=== PATIENT | male | born 2000 | race Hispanic/Latino ===

== ENCOUNTER 2023-08-12 23:11 | Emergency (ER) | payer OTHER ==
[~2023-08-12] VITALS: Ht 177.8 cm; Wt 126.1 kg
[2023-08-12 23:13] VITALS: BP_DIAS 74
[2023-08-13 00:59] VITALS: BP_SYST 74; PULSE 87; RESP 18; O2SAT 98
[2023-08-13 00:59] LABS: SARS-CoV-2, RNA, NAAT NEGATIVE SARS CoV-2 (NEGATIVE)
[2023-08-13 01:05] LABS: INFLUENZA TYPE A Negative For Type A (NEGATIVE); INFLUENZA TYPE B Negative For Type B (NEGATIVE)
[2023-08-13] MEDS ORDERED: IBUP-1493 PO (01:38)
[2023-08-13] MEDS ORDERED: CEFU500T67 PO (01:38)
== END 2023-08-13 01:49 | disposition home or self-care (01) ==
LOC: EDH 23:11
DX: B34.9 Viral infection, unspecified (principal); J20.9 Acute bronchitis, unspecified; F17.200 Nicotine dependence, unspecified, uncomplicated; Z20.822 Contact with and (suspected) exposure to COVID-19
CPT/HCPCS: 99283; 87635; 87804 ×2; C9803

== ENCOUNTER 2025-06-23 08:29 | Emergency (ER) | payer OTHER ==
[~2025-06-23] VITALS: Ht 180.3 cm; Wt 127.0 kg
[~2025-06-23 08:29] MED LIST: CEFU500T67 PO; IBUP-1493 PO
[2025-06-23 09:11] LABS: IMMATURE GRANULOCYTE ABSOLUTE 0.04 K/uL (0-1); NUCLEATED RED BLOOD CELLS 0.0 % (0.0-0.19); PLATELET COUNT (AUTO) 194 K/uL (130-400); RED BLOOD CELL COUNT(AUTO) 5.46 MIL/uL (4.50-6.20); RED CELL DISTRIBUTION WIDTH 13.3 % (11.0-15.5); WHITE BLOOD COUNT (AUTO) 11.3 K/uL (4.8-10.8)
[2025-06-23 09:18] LABS: CREATININE 0.8 mg/dL (0.5-1.3); GLOMERULAR FILTR. RATE CALC 126.0 mL/min (>90); GLUCOSE,RANDOM 122.0 mg/dL (70-105); SODIUM SERUM 141.0 mmol/L (136-145); UREA NITROGEN, BLOOD 12.0 mg/dL (7-18)
[2025-06-23 09:19] LABS: RAPID GROUP A STREP negative (NEGATIVE)
--- NOTE | 2025-06-23 09:23 | ERN ---
General Chief Complaint: Cough Stated Complaint: COUGH Time Seen by MD: 08:34 History of Present Illness Initial Comments 25-year-old male presented with a chief complaint of cough with sputum production for 2 weeks. He also complained of vomiting for the last 1 week after the vigorous cough. He denied fever, night sweat, shortness of breath, chest pain, noisy breathing, myalgia, abdominal pain, diarrhea and any other recent illness in the family. He has been actively smoking 1-2 sticks per day for last 6 years. He complained of mild throat discomfort because of occasional vomiting precipitated by vigorous cough. Allergies: Coded Allergies: No Known Drug Allergies (Unverified Allergy, Unknown, 08/12/23) Home Meds Active Scripts Fexofenadine HCl (Fexofenadine HCl) 180 Mg Tablet, 180 MG PO DAILYDINNER for 5 Days, #5 TAB Prov:YAIMA ROSS MD 06/23/25 Pantoprazole Sodium (Pantoprazole Sodium) 40 Mg Tablet.dr, 40 MG PO DAILY for 10 Days, #10 TAB Prov:YAIMA ROSS MD 06/23/25 Azithromycin (Azithromycin) 250 Mg Tablet, 1 TAB PO AD for 5 Days, #6 TAB 0 Refills 2 the first day followed by 1 for days 2-5 Prov:YAIMA ROSS MD 06/23/25 Cefuroxime Axetil (Cefuroxime) 500 Mg Tablet, 500 MG PO BID, #20 TAB Prov:GWYN DOMINIQUE MD 08/13/23 Ibuprofen (Motrin/Advil) 800 Mg Tab, 800 MG PO TID, #30 TAB Prov:GWYN DOMINIQUE MD 08/13/23 Past Medical History Past Medical History: No Pertinent History Past Surgical History: None Social History Social History: Smokers ROS Dictation CONSTITUTIONAL: No chills, no fever, no weakness, no diaphoresis, no malaise. HEAD/FACE: No signs of trauma. EENT: No eye pain, no blurred vision, no tearing, no double vision, no ear pa in, no ear discharge, no nose pain, no nasal congestion, no throat pain, no throat swelling, no mouth pain. RESPIRATORY: Cough present with sputum production,No SOB, no stridor, wheezing. CARDIOVASCULAR: No chest pain, no edema, no palpitations, no syncope. GASTROINTESTINAL/ABDOMINAL: No abdominal pain, no constipation, no diarrhea, no nausea, vomiting present GENITOURINARY: No abnormal discharge, no dysuria, no frequent urination, no hematuria. No complaints of pain in the genitals. MUSCULOSKELETAL: No back pain, no gout, no joint pain, no joint swelling, no muscle pain, no muscle stiffness, no neck pain. INTEGUMENTARY: No change in color, no change in hair/nails, no dryness, no lesion, no lumps, no rash. NEUROLOGICAL/PSYCH: No anxiety, not depressed, no emotional problem, no headache, no numbness, no pre-existing deficit, no history of seizures, no tremors, no weakness. HEMATOLOGIC/LYMPHATIC: Not anemic, no history of blood clots, no apparent bleeding, no bruising, glands not swollen. Physical Exam Physical Exam Dictation GENERAL APPEARANCE: Alert, oriented x3, no acute distress, obese. HEAD AND FACE: Non-traumatic. EYES: PERRL, pink conjunctivas, eyelid no trauma, anterior chamber clear. EARS: Pinnas intact and no signs of trauma or erythema. Ear canals clear and no discharge. NOSE: No discharge, no bleeding. OROPHARYNX: Mouth normal, teeth no caries, tongue pink. Pharynx clear, no erythema. Tonsils no exudates, no abscesses noted. Mucous membrane moist. NECK: Supple, non-tender, no thyromegaly, no masses, no JVD, no bruits. BREAST: Deferred. CHEST: No tenderness, no crepitus, no paradoxical movement, no retractions. LUNGS: Clear, well-ventilated, symmetric, no rales, wheezing, no rhonchi, no stridor, good breath sounds bilaterally. HEART: Regular rate, regular rhythm, no murmur, no gallops. VASCULAR: No peripheral edema. ABDOMEN: Soft, positive bowel sounds, nondistended, no guarding, nontender, no rebound, no masses no hepatomegaly, no splenomegaly, no Garcia's sign, no hernias. RECTAL: Deferred. GENITAL: Deferred. NEUROLOGICAL: Normal speech, gross motor function intact, gross sensory function intact. MUSCULOSKELETAL: Neck nontender, full range of motion, back nontender, full range of motion. EXTREMITIES: Nontender, full range of motion. SKIN: Color pink, dry, no turgor, no rash, no lacerations, no abrasions, no contusions. Results Laboratory and Microbiology Lab and Micro Result Laboratory Tests Test 06/23/25 08:35 06/23/25 09:04 Influenza Type A Antigen Negative For Type A Influenza Type B Antigen Negative For Type B SARS-CoV-2, RNA, NAAT NEGATIVE SARS CoV-2 Group A Streptococcus Rapid negative (NEGATIVE) White Blood Count 11.3 K/uL (4.8-10.8) H Red Blood Count 5.46 MIL/uL (4.50-6.20) Hemoglobin 14.9 g/dL (14.0-18.0) Hematocrit 44.1 % (42-54) Mean Corpuscular Volume 80.8 fL (79-99) Mean Corpuscular Hemoglobin 27.3 pg (27.0-33.0) Mean Corpuscular Hemoglobin Concent 33.8 g/dL (32.0-36.0) Red Cell Distribution Width 13.3 % (11.0-15.5) Platelet Count 194 K/uL (130-400) Mean Platelet Volume 11.4 fL (7.5-10.5) H Immature Granulocyte % (Auto) 0.4 % (0-1) Neutrophils (%) (Auto) 68.2 % (40.0-77.0) Lymphocytes (%) (Auto) 22.3 % (21.0-51.0) Monocytes (%) (Auto) 7.3 % (3.0-13.0) Eosinophils (%) (Auto) 1.2 % (0.0-8.0) Basophils (%) (Auto) 0.6 % (0.0-5.0) Neutrophils # (Auto) 7.7 K/uL (1.8-7.7) Lymphocytes # (Auto) 2.5 K/uL (1.0-4.8) Monocytes # (Auto) 0.8 K/uL (0.1-1.0) Eosinophils # (Auto) 0.14 K/uL (0.00-0.70) Basophils # (Auto) 0.07 K/uL (0.00-0.20) Absolute Immature Granulocyte (auto 0.04 K/uL (0-1) Nucleated Red Blood Cells 0.0 % (0.0-0.19) Sodium Level 141 mmol/L (136-145) Potassium Level 4.0 mmol/L (3.5-5.1) Chloride Level 105 mmol/L (101-111) Carbon Dioxide Level 27 mmol/L (21-32) Blood Urea Nitrogen 12 mg/dL (7-18) Creatinine 0.8 mg/dL (0.5-1.3) Glomerular Filtration Rate Calc 126 mL/min (>90) Random Glucose 122 mg/dL (70-105) H Total Calcium 8.5 mg/dL (8.5-10.1) MDM The patient presented with chief complaint of cough with sputum production for 2 weeks and occasional vomiting associated with the cough. Vitals stable with SpO2 95% in room air, respiratory rate 16. Remarkable lab with WBC 11.3, random glucose 122. Throat swab negative for strep, influenza, COVID. Patient received 1 L of LR bolus, pantoprazole 40 mg IV and Zofran 4 mg IV. Chest x-ray revealed no consolidation, no pleural effusion, no pneumothorax. Patient is stable to be discharged on azithromycin for 5 days, fexofenadine for 5 days and pantoprazole for 10 days. He will follow up to PCP if the symptoms do not improve in 1 week or if it gets worse. ED Course Orders Procedure Category Date Status Time Covid Rna Naat LAB 06/23/25 Complete 08:55 Influenza Type A & B, LAB 06/23/25 Complete Rapid 08:55 Rapid (Group A Strep) LAB 06/23/25 Complete 08:55 Cbc With Differential LAB 06/23/25 Complete 08:53 Basic Metabolic Panel LAB 06/23/25 Complete 08:53 Chest 1vw RAD 06/23/25 Resulted 08:53 Lactated Ringers PHA 06/23/25 Complete 1000ml (Lactated 09:30 Pantoprazole 40mg Inj PHA 06/23/25 Complete (Protonix 40mg Inj 09:30 Ondansetron 4mg Inj PHA 06/23/25 Complete (Zofran 4mg Inj) 09:30 Current Medications Medications (Trade) Dose Ordered Sig/Ning Route PRN Reason Start Time Stop Time Status Last Admin Dose Admin Lactated Ringer's 1,000 ml @ 0 mls/hr ONCE ONCE IV 06/23/25 09:30 06/23/25 09:31 DC 06/23/25 09:40 Ondansetron HCl (zoFRAN 4MG INJ) 4 mg ONCE ONCE IVP 06/23/25 09:30 06/23/25 09:31 DC 06/23/25 09:40 Pantoprazole Sodium (PROTonix 40MG INJ) 40 mg ONCE ONCE IVP 06/23/25 09:30 06/23/25 09:31 DC 06/23/25 09:40 Vital Signs Date Time Temp Pulse Resp B/P (MAP) Pulse Ox O2 Delivery O2 Flow Rate FiO2 06/23/25 10:35 98.1 76 16 141/76 95 Room Air* 0 21 06/23/25 08:31 98.1 78 16 147/75 95 Room Air 0 DX & DISP Disposition: Discharge Departure Impression: Ruled Out: Community acquired pneumonia, Viral syndrome Critical Time: 30 minutes Condition: Stable Scripts Fexofenadine HCl (Fexofenadine HCl) 180 Mg Tablet 180 MG PO DAILYDINNER for 5 Days, #5 TAB Prov: YAIMA ROSS MD 06/23/25 Pantoprazole Sodium (Pantoprazole Sodium) 40 Mg Tablet.dr 40 MG PO DAILY for 10 Days, #10 TAB Prov: YAIMA ROSS MD 06/23/25 Azithromycin (Azithromycin) 250 Mg Tablet 1 TAB PO AD for 5 Days, #6 TAB 0 Refills 2 the first day followed by 1 for days 2-5 Prov: YAIMA ROSS MD 06/23/25 Additional Instructions: -You are discharged on azithromycin once a day for 5 days. Take 2 tabs of 250 mg azithromycin on 1st day followed by 1 tab for the next 4 days. -You are discharged on fexofenadine 180 mg daily at the bedtime for 5 days -You are discharged on pantoprazole 40 mg daily for 10 days -You can take Tessalon Perles 3 times a day as needed for the cough -FOLLOW UP TO PCP IF THE SYMPTOMS DO NOT IMPROVE IN 1 WEEK. Referrals: SELF,REFERRAL (PCP) I performed a substantive portion of the visit. I have reviewed and personally made and approve the management plan that is documented in the notes by myself with ELEANOR/resident. I acknowledged full responsibility for the patient's managem ent plan. 25-year-old healthy male with prolonged cough sputum production Differential includes community-acquired pneumonia pertussis viral syndrome bronchitis or other Vitals are stable Labs are unremarkable Chest x-ray is clear We will treat as community-acquired pneumonia based on the clinical symptoms, discharged with anti-tussive and antibiotics. ATTESTATION BY PHYSICIAN I have seen and examined the patient. I reviewed the documentation, medical decision making, and treatment plan as noted by the resident . I agree with the findings and plan of care. Roberto Gama SUNIL MD Jun 23, 2025 09:23 ROBERTO GAMA DO Jun 23, 2025 10:58
[2025-06-23 09:24] LABS: SARS-CoV-2, RNA, NAAT NEGATIVE SARS CoV-2 (NEGATIVE)
[2025-06-23 09:29] LABS: INFLUENZA TYPE A Negative For Type A (NEGATIVE); INFLUENZA TYPE B Negative For Type B (NEGATIVE)
[2025-06-23] MEDS: LACTATED RINGERS 1000ML 1,000 ML IV ONE (09:40)
--- NOTE | 2025-06-23 10:04 | HMCIMG ---
EXAM: CR Chest, 1 View. CLINICAL HISTORY: cough COMPARISON: None provided. FINDINGS: LUNGS: The lungs show no infiltrate or other acute finding. PLEURAL SPACES: No evidence of pleural effusion or pneumothorax. MEDIASTINUM: The cardiomediastinal silhouette is within normal limits. BONES: No aggressive appearing osseous lesion seen. IMPRESSION: No acute cardiopulmonary pathology is evident. /[place]
[2025-06-23] MEDS ORDERED: PANT40TA54 PO (10:23)
[2025-06-23] MEDS ORDERED: FEXO-402 PO (10:23)
[2025-06-23] MEDS ORDERED: AZIT250T9 PO (10:23)
[2025-06-23 10:35] VITALS: BP 141/76; PULSE 76; RESP 16; TEMP 98.1; O2SAT 95
== END 2025-06-23 10:47 | disposition home or self-care (01) ==
LOC: EDH 08:29
DX: R05.9 Cough, unspecified (principal); Z20.822 Contact with and (suspected) exposure to COVID-19; R09.3 Abnormal sputum; R11.10 Vomiting, unspecified; F17.200 Nicotine dependence, unspecified, uncomplicated; Z79.1 Long term (current) use of non-steroidal anti-inflammatories (NSAID); Z79.899 Other long term (current) drug therapy
CPT/HCPCS: 99284; 96374; 71045; 87635; 96361; 96375; 80048; 85025; 87880; 87804 ×2; 36415; J7120; J2405; J2470